=== PATIENT | male | born 1980 | race Caucasian/White ===

== ENCOUNTER 2018-08-25 11:15 | Emergency (ER) | payer MEDICAID, OTHER ==
[2018-08-25] MEDS: IBUPROFEN 600 MG TAB PO (12:09)
[2018-08-25] MEDS: ACETAMINOPHEN 325 MG TAB PO (12:09)
[2018-08-25] MEDS: AMOXICILLIN 500 MG CAP PO (12:59)
== END 2018-08-25 13:10 | disposition home or self-care (01) ==
LOC: FTE 11:15
DX: J02.0 Streptococcal pharyngitis (principal); E11.9 Type 2 diabetes mellitus without complications
CPT/HCPCS: 87880; 99283